=== PATIENT | female | born 1970 | race Native Hawaiian/Other Pacific Islander ===

== ENCOUNTER 2017-04-28 06:34 | Day surgery (SDC) | payer MEDICAID ==
[2016-09-24 10:24] VITALS: BMI 25.7
[2017-04-28 07:39] LABS: BASO # 0.01 K/mm3 (0.0-2.0); BASO % 0.2 % (0.0-3.0); EOS # 0.1 (0.0-0.7); GRAN # 3.03 (1.4-6.5); GRAN % 63.9 % (50.0-68.0); HEMATOCRIT 38.3 % (36.0-48.0); LYMPH # 1.1 (1.2-3.4); LYMPH % 23.4 % (22.0-35.0); MEAN CORPUSCULAR HEMOGLOBIN 31.4 pg (25.0-35.0); MEAN CORPUSCULAR HGB CONC 34.5 g/dl (31.0-37.0); MEAN PLATELET VOLUME 10.3 fl (7.0-11.0); MONO # 0.5 (0.1-0.6); MONO % 9.5 % (1.0-6.0); RED CELL DISTRIBUTION WIDTH 13.4 % (11.5-14.5); WHITE BLOOD COUNT 4.7 10^3/ul (4.5-11.0)
[2017-04-28 07:48] LABS: BLOOD UREA NITROGEN 13 mg/dL (7-21); CALCIUM 9.1 mg/dL (8.4-10.5); CARBON DIOXIDE 27 mmol/L (21-33); CHLORIDE 105 mmol/L (95-110); GFR AFRICAN-AMERICAN > 60; GLUCOSE,RANDOM 104 mg/dL (70-110); INR 0.92 (0.93-1.08); PARTIAL THROMBOPLASTIN TIME 29.6 Seconds (23.7-30.8); POTASSIUM 4.3 mmol/L (3.6-5.0); SODIUM 143 mmol/L (132-148)
[2017-04-28] MEDS ORDERED: Lidocaine 2% Inj (20ml) ONE (09:52)
[2017-04-28] MEDS ORDERED: Iodixanol 320 MG/ML 200 ML BOTTLE IV ONE (09:53)
[2017-04-28] MEDS ORDERED: Midazolam 2 MG/2 ML VIAL ONE ×3 (09:53→11:24)
[2017-04-28] MEDS ORDERED: Iodixanol 320 MG/ML 100 ML BOTTLE IV ONE (09:53)
[2017-04-28] MEDS ORDERED: Nitroglycerin 50mg in D5W 50 MG/250 ML BOTTLE IV ONE (09:54)
[2017-04-28] MEDS ORDERED: Oxycodone/Acetaminophen 5/325 mg Tab PO PRN (12:20)
[2017-04-28] MEDS ORDERED: Sodium Chloride 0.45% 1,000 ML IV SCH (12:30)
[2017-04-28 13:34] VITALS: TEMP 98; O2SAT 98
[2017-04-28 14:01] VITALS: RESP 18
[2017-04-28 14:49] VITALS: BP 121/78; PULSE 72
[2017-04-28] MEDS ORDERED: Oxycodone/Acetaminophen 5/325 mg Tab ONE (17:23)
--- NOTE | 2017-04-28 18:28 | VASCULAR ---
PROCEDURE: 1. Abdominal aortogram and bilateral lower extremity runoff with bilateral selective images. 2. Long segment left anterior tibial artery recanalization with angioplasty. 3. Long segment left peroneal artery angioplasty HISTORY: Severe peripheral vascular disease. Rest pain. Severe bilateral tibial disease. PHYSICIAN(S): Jose Eduardo Segundo M.D. TECHNIQUE: The relative risks and indications of the procedure were explained to the patient and consent obtained. The patient was hydrated prior to the procedure and the appropriate labs drawn. The patient was placed supine on the arteriogram table and the right groin prepped and draped in the usual sterile fashion. Conscious sedation and monitoring were provided throughout the procedure by a nurse. Via a right common femoral artery approach, a 5 [place] sheath was placed in the right groin. Through the sheath and over a guidewire, a 5 [place] flush catheter was placed in the abdominal aorta at the level of the renal arteries and a PA DSA abdominal aortogram performed. The catheter was pulled down to the aortic bifurcation and bilateral oblique DSA pelvic arteriograms performed. Overlapping bilateral lower extremity DSA arteriograms were obtained from the inguinal ligaments to the ankles A 0.035 angled Glidewire was advanced over the bifurcation and placed in the distal left SFA. A 6 [place]ian 70 cm Maikel sheath was placed in the distal left SFA. Heparin 6500 units IV and nitroglycerin in 250 mcg aliquots were given. The long segment occlusion of the left SFA was crossed rather easily with 5 [place] catheter and angled Glidewire. 0.014 support wire was placed in the distal left anterior tibial artery. The left anterior tibial artery was dilated with a 2.5-3.5 tapered angioplasty balloon. Antegrade flow was re-established. The distal left anterior tibial artery was subsequently dilated with a 3.0 by 120 angioplasty balloon. 0.014 support wire was redirected to the terminal left peroneal artery. The left peroneal artery was dilated with the same 2.5-3 0.0 x 210 angioplasty balloon. The distal left peroneal artery was dilated with a 3.0 balloon. Vasa dilators were given. No stent was required. Completion angiograms were obtained. The sheath was removed hemostasis obtained. The patient tolerated the procedure well. FINDINGS: The [place] arteries are congenitally small. There are single renal arteries bilaterally which are widely patent and normal in appearance. The nephrograms are symmetric in appearance. The infrarenal abdominal aorta is widely patent without a radiographically significant stenosis. The aortic bifurcation is widely patent. The common and external iliac arteries are normal in appearance without a significant stenosis. The internal iliac arteries are patent bilaterally. Right lower extremity: The right common femoral artery is patent. The right profunda femoral artery is patent. The right superficial femoral artery is patent and continuous without a radiographically significant stenosis. The right popliteal artery is patent and continuous. There is severe right trifurcation and tibial occlusive disease. Extensive hardware is noted at the right ankle. Large collaterals are present consistent with chronic occlusive disease. There is reconstitution of a large terminal right posterior tibial artery which feeds the plantar arch. The dorsalis pedis artery is occluded. Left lower extremity: Left common femoral artery is patent. The left profunda femoral artery is patent. The left superficial femoral artery is patent and continuous without a radiographically significant stenosis. The left popliteal artery is widely patent. Once again there is severe left trifurcation and tibial occlusive disease. 3 vessels are occluded. Successful recanalization of the left anterior tibial artery and left peroneal artery was obtained. IMPRESSION: 1.Successful recanalization of the long segment left anterior tibial artery occlusion. 2. Successful long segment angioplasty of the left peroneal artery. 3. Severe bilateral trifurcation, tibial, and pedal occlusive disease. On the right, there is reconstitution of a large terminal posterior tibial artery
== END 2017-04-28 18:22 | disposition home or self-care (01) ==
LOC: SDSVAS 06:34
PROVIDERS: ATTEND Radiology Vascular & Interventional Radiology
DX: I70.223 Atherosclerosis of native arteries of extremities with rest pain, bilateral legs (principal); Z86.73 Personal history of transient ischemic attack (TIA), and cerebral infarction without residual deficits; Z88.5 Allergy status to narcotic agent; Z91.018 Allergy to other foods
CPT/HCPCS: 36415; 37228; 37232; 75625; 75716; 80048; 84703; 85025; 85610; 85730; 99152; 99153; C1725 ×3; C1760 ×2; C1769 ×4; C1887; C1892; C1894; J1644 ×2; J2250; J2405; J3010; J7030; Q9967

== ENCOUNTER 2017-05-19 11:53 | Day surgery (SDC) | payer MEDICAID ==
[2016-09-24 10:24] VITALS: BMI 25.7
[2017-05-19] MEDS ORDERED: Iodixanol 320 MG/ML 100 ML BOTTLE IV ONE ×2 (12:27→15:10)
[2017-05-19] MEDS ORDERED: Nitroglycerin 50mg in D5W 50 MG/250 ML BOTTLE IV ONE (12:27)
[2017-05-19] MEDS ORDERED: Iodixanol 320 MG/ML 200 ML BOTTLE IV ONE (12:27)
[2017-05-19] MEDS ORDERED: Lidocaine 2% Inj (20ml) ONE (12:29)
[2017-05-19 12:44] LABS: BASO # 0.01 K/mm3 (0.0-2.0); BASO % 0.2 % (0.0-3.0); EOS % 0.8 % (1.5-5.0); GRAN # 3.51 (1.4-6.5); GRAN % 67.9 % (50.0-68.0); HEMATOCRIT 40.4 % (36.0-48.0); LYMPH # 1.2 (1.2-3.4); LYMPH % 23.2 % (22.0-35.0); MEAN CORPUSCULAR HEMOGLOBIN 32.1 pg (25.0-35.0); MEAN CORPUSCULAR HGB CONC 34.9 g/dl (31.0-37.0); MEAN PLATELET VOLUME 10.5 fl (7.0-11.0); MONO # 0.4 (0.1-0.6); MONO % 7.9 % (1.0-6.0); RED CELL DISTRIBUTION WIDTH 13.1 % (11.5-14.5); WHITE BLOOD COUNT 5.2 10^3/ul (4.5-11.0)
[2017-05-19 12:53] LABS: BLOOD UREA NITROGEN 17 mg/dL (7-21); CALCIUM 9.4 mg/dL (8.4-10.5); CARBON DIOXIDE 23 mmol/L (21-33); CHLORIDE 106 mmol/L (98-107); GFR AFRICAN-AMERICAN > 60; GLUCOSE,RANDOM 106 mg/dL (70-110); POTASSIUM 4.5 mmol/L (3.6-5.0); SODIUM 142 mmol/L (132-148)
[2017-05-19 12:54] LABS: INR 0.94 (0.93-1.08); PARTIAL THROMBOPLASTIN TIME 25.1 Seconds (23.7-30.8)
[2017-05-19] MEDS ORDERED: Midazolam 2 MG/2 ML VIAL ONE ×3 (12:59→14:40)
[2017-05-19] MEDS ORDERED: Oxycodone/Acetaminophen 5/325 mg Tab PO PRN (15:49)
[2017-05-19] MEDS ORDERED: Sodium Chloride 0.45% 1,000 ML IV SCH (16:00)
[2017-05-19 17:05] VITALS: RESP 20; TEMP 97.4; O2SAT 98
[2017-05-19 18:25] VITALS: PULSE 82
--- NOTE | 2017-05-19 18:45 | VASCULAR ---
PROCEDURE: Abdominal aortogram and bilateral lower extremity runoff with antegrade and retrograde punctures HISTORY: Severe peripheral vascular disease. Recent left tibial intervention. Right foot rest pain. PHYSICIAN(S): Jose Eduardo Segundo MD. TECHNIQUE: The relative risks and indications of the procedure were explained to the patient and consent obtained. The patient was hydrated prior to the procedure and the appropriate labs drawn. The patient was placed supine on the arteriogram table and the left groin prepped and draped in the usual sterile fashion. Conscious sedation and monitoring were provided throughout the procedure by a nurse. Via a left common femoral artery approach, a 5 Ethiopian sheath was placed in the right groin. Through the sheath and over a guidewire, a 5 Ethiopian flush catheter was placed in the abdominal aorta at the level of the aortic bifurcation and an RPO DSA abdominal and pelvic arteriogram performed. Overlapping bilateral lower extremity DSA arteriograms were obtained from the inguinal ligaments to the ankles. 0.035 support guidewire was placed the distal right SFA. 6 Ethiopian 90 cm sheath was placed in the right popliteal artery. Heparin and nitroglycerin were given. Additional imaging of the right tibial vessels was performed. The origin of the right posterior tibial artery was probed with 0.035 glidewire. A stump could not be seen and the origin could not be engaged. Subsequently the right ankle was prepped and draped usual sterile fashion. 1 percent xylocaine was used to anesthetize the skin soft tissues. Under direct ultrasound guidance, the terminal right posterior tibial artery was punctured with a micropuncture set. The 5 Ethiopian catheter was placed. Various 0.018 and 0.014 guidewires were used to attempt a retrograde recanalization of the right posterior tibial artery. Unfortunately, re-entry could not be obtained at the right trifurcation. Additional attempts in an antegrade direction were performed. These were unsuccessful. The procedure was terminated and hemostasis obtained at both puncture sites. The patient tolerated the procedure well. FINDINGS: The terminal abdominal aorta is patent. Aortic bifurcation is patent. The common and external iliac arteries are widely patent. The internal iliac arteries are patent bilaterally. Right lower extremity: The right common femoral artery is patent. The right profunda femoral artery is patent. The right SFA is patent and normal in appearance. The right popliteal artery is patent and normal. There is severe right trifurcation and tibial occlusive disease. All 3 tibial vessels are occluded at the trifurcation. There is reconstitution of the terminal right posterior tibial artery. Extensive hardware is seen at the right ankle. Plantar arch is intact. The dorsalis pedis artery is not opacified. Left lower extremity: The left common femoral arch patent. Left profunda femoral arch patent. The left SFA is patent and normal throughout the course. The left popliteal artery is patent. Once again is noted severe left trifurcation and tibial occlusive disease. There is a short segment occlusion of the proximal left peroneal artery. The left anterior tibial artery which was recently treated is occluded. There is reconstitution of the mid to distal left peroneal artery. IMPRESSION: 1. Severe bilateral trifurcation, tibial, and pedal occlusive disease. 2. Unsuccessful attempt a recannulized seen the right posterior tibial artery from antegrade and retrograde approach. 3. Subacute thrombosis of the left anterior tibial artery. There is a short segment occlusion of the mid left peroneal artery.
[2017-05-19 18:50] VITALS: BP 119/76
== END 2017-05-19 19:15 | disposition home or self-care (01) ==
LOC: SDSVAS 11:53
PROVIDERS: ATTEND Radiology Vascular & Interventional Radiology
DX: I70.221 Atherosclerosis of native arteries of extremities with rest pain, right leg (principal); I74.3 Embolism and thrombosis of arteries of the lower extremities; Z86.73 Personal history of transient ischemic attack (TIA), and cerebral infarction without residual deficits
CPT/HCPCS: 36140; 36247; 36415; 75716; 75774; 80048; 84703; 85025; 85610; 85730; 99152; 99153; C1725 ×2; C1760 ×2; C1769 ×6; C1887; C1894; J1644 ×2; J2250; J2405; J3010; J7030; Q9967